=== PATIENT | male | born 1965 | race Caucasian/White ===

== ENCOUNTER 2021-12-10 12:43 | Emergency (ER) | payer OTHER, SELFPAY ==
[2021-12-10 13:33] VITALS: BP 143/79; PULSE 89; RESP 18; TEMP 36.6; O2SAT 98; BMI 29.2
--- NOTE | 2021-12-10 13:53 | HMH.EDUTC ---
[facility] Disposition Clinical Impression: Edema of face, Periorbital swelling Disposition: Home, Self-Care Condition on Discharge: Good Instructions: DI for General Allergic Reactions, Methylprednisolone Injection Additional Instructions: Drink plenty of fluids. Take tylenol or ibuprofen for pain or fever. Take the medications as directed. Follow up with your regular doctor. GO TO THE ER FOR ANY WORSENING SYMPTOMS Don't start the oral steroids until tomorrow, since you had the shot here today. Try to take the diphenhydramine (benedryl) regularly for the next couple of days. It will make you drowsy, so don't drive or operate machinery after taking it. Prescriptions: diphenhydrAMINE HCL [Diphenhydramine HCl] 25 mg PO Q6HP PRN #30 cap PRN Reason: Itching Transmission [id number] methylPREDNISolone [Medrol] 4 mg PO DIRECTED 6 Days #21 packet Transmission Status: Re[facility] by [id number] Referrals: Provider,Referral, MD [Primary Care Provider] - Forms: Work/School Release Time of Disposition: 14:44 Medical Decision Making - Medical Records Medical records reviewed: No: I reviewed the patient's medical records. - Tommy Inquiry Pt receiving controlled substance: No Vital Signs: 12/10/21 13:33 12/10/21 14:49 Temperature 97.9 F 97.9 F Temperature Source Oral Oral Pulse Rate 89 Pulse Rate [Right Brachial] 89 Respiratory Rate 18 18 Blood Pressure 143/79 H Blood Pressure [Right Arm] 143/79 H Blood Pressure Mean [Right Arm] 100 Blood Pressure Source Automatic Cuff Blood Pressure Source [Right Arm] Automatic Cuff Blood Pressure Position [Right Arm] Sitting 02 Sat by Pulse Oximetry 98 Oxygen Delivery Method Room Air Room Air Orders (Tests/Meds): ED MEDICATIONS Discontinued Medications Generic Name Dose Route Start Last Admin Trade Name Freq PRN Reason Stop Dose Admin Methylprednisolone Sodium Succinate 125 mg 12/10/21 14:07 12/10/21 14:15 Methylprednisolone Sod Succ 125mg Vial IM 12/10/21 14:08 125 mg ONCE ONE Administration [facility] HPI - General Stated complaint: bilateral eye pain/swelling Time Seen by Provider: 12/10/21 13:53 Mode of Arrival: Ambulatory Source of Information: Patient, Relative Limitations: Language Barrier Description of Symptoms (Recalled from Triage Doc. by RN): eye swelling/pain HEENT Symptoms (Recalled from RN notes): Yes Resp Symptoms (Recalled from RN notes): No Skin Symptoms (Recalled from RN notes): No MS Symptoms (Recalled from RN notes): No Functional Status (Recalled from RN notes): n/a - History of Present Illness Provider Complaint: He states that for the past 2 days he has had worsening swelling around his eyes. He denies any vision changes, other than what the swelling causes. He denies any injury or foreign body. 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 He denies any fever, but he did have some chilling a couple of days ago. But, he states that that got better. - Related Data Previous Rx's Medication Instructions Recorded diphenhydrAMINE HCL 25 mg PO Q6HP PRN #30 cap 12/10/21 [Diphenhydramine HCl] methylPREDNISolone [Medrol] 4 mg PO DIRECTED 6 Days #21 12/10/21 packet Allergies Allergy/AdvReac Type Severity Reaction Status Date / Time No Known Allergies Allergy Verified 12/10/21 14:15 - Worker's Comp Is this a Worker's Comp case?: No Is this an [facility] Worker's Comp?: No Is this a [facility] Worker's Comp?: No H History - Hepatitis A Screen Drug use history?: No High risk sexual behaviors?: No History of sexually transmitted infection?: No Currently employed?: No Childcare worker?: No Do you have indoor plumbing?: Yes Do you have electricity?: Yes Attestation statement:: This patient has been screened for Hepatitis A risk factors. I have reviewed the patient's past medical history: Yes ROS Obtained: Yes All systems reviewed & no additional complaints - Constitu
[2021-12-10 14:49] VITALS: BP 143/79; PULSE 89; RESP 18; TEMP 36.6; O2SAT 98
== END 2021-12-10 14:49 | disposition home or self-care (01) ==
PROVIDERS: Emergency Provider Nurse Practitioner Family
DX: H05.223 Edema of bilateral orbit (principal)
CPT/HCPCS: 96372; 99202; G0463

== ENCOUNTER 2021-12-17 18:23 | Inpatient (IN) | payer OTHER, SELFPAY ==
[2021-12-17 18:24] VITALS: BP 112/73; PULSE 127; RESP 16; TEMP 36.8; O2SAT 100; BMI 28.1
--- NOTE | 2021-12-17 18:46 | CT_ITS ---
PROCEDURE INFORMATION: Exam: CT Abdomen And Pelvis With Contrast Exam date and time: 12/17/2021 6:46 PM Age: 56 years old Clinical indication: Other: Bloody stool; Additional info: Melena- bloody stool concern for gi bleed TECHNIQUE: Imaging protocol: Computed tomography of the abdomen and pelvis with contrast. Radiation optimization: All CT scans at this facility use at least one of these dose optimization techniques: automated exposure control; mA and/or kV adjustment per patient size (includes targeted exams where dose is matched to clinical indication); or iterative reconstruction. Contrast material: ISOVUE; Contrast volume: 75 ml; Contrast route: IV; COMPARISON: No relevant prior studies available. FINDINGS: Liver: Shrunken nodular contour of the liver. Gallbladder and bile ducts: No calcified stones. No ductal dilation. Pancreas: Normal enhancement. No ductal dilation. Spleen: Spleen is enlarged measuring 20.8 cm in cc dimension. Adrenal glands: No mass. Kidneys and ureters: No hydronephrosis. Stomach and bowel: Wall thickening of the ascending and transverse colon. Appendix: No evidence of appendicitis. Intraperitoneal space: No free air. No significant fluid collection. Vasculature: Gastric and perisplenic varices. Splenorenal shunt is present. Lymph nodes: No enlarged lymph nodes. Urinary bladder: No acute abnormality. Reproductive: No acute abnormality. Bones/joints: No acute fracture. Soft tissues: Bilateral gynecomastia. IMPRESSION: Findings of cirrhosis with portal hypertension. There is colonic wall thickening which can also be seen in setting of portal hypertension however colitis or malignancy should be clinically excluded.
[2021-12-17 18:50] VITALS: BMI 28.1
--- NOTE | 2021-12-17 18:50 | ECG_ITS ---
APPROVED REPORT Exam: Resting ECG HR:125 bpm ECG Measurements Heart Rate 125 AXES ME 144 P 4 QRSd 91 QRS 41 QT 301 T 39 QTc 375 Conclusion SINUS TACHYCARDIA ABNORMAL RHYTHM ECG UNCONFIRMED REPORT Electronically signed by : Juan Lynne MD 12/21/2021 16:11:25
--- NOTE | 2021-12-17 18:58 | HMH.EDGENADL ---
ED Disposition Clinical Impression: GI bleed Disposition: Admitted As Inpatient Condition on Discharge: Serious Time of Disposition: 18:45 - Critical Care Critical Care Time: Yes Attestation: On 12/17/21, the high probability of a clinically significant, sudden or life threatening deterioration of the following system(s) required my full and direct attention, intervention and personal management. The time I documented below is in addition to time spent performing reported procedures but includes the following listed in this critical care notation. Total Critical Care Time: 30 Vital system(s) involved:: Central Nervous System, Shock (Hemorrhage) My critical care processes included: Assessment & monitoring of V/S, Initial and Re-exams, Data Review/Interpretation, Coordinating Care, Medication Orders and management Medical Decision Making - Medical Records Medical records reviewed: Yes: I reviewed the patient's medical records. - Tommy Inquiry Pt receiving controlled substance: No Vital Signs: 12/17/21 18:24 12/17/21 19:08 Temperature 98.3 F Temperature Source Oral Pulse Rate 120 H Pulse Rate [Right] 127 H Respiratory Rate 16 16 Blood Pressure 104/59 L Blood Pressure [Right Arm] 112/73 Blood Pressure Mean [Right Arm] 86 Blood Pressure Source Automatic Cuff Blood Pressure Source [Right Arm] Automatic Cuff Blood Pressure Position Sitting Blood Pressure Position [Right Arm] Sitting 02 Sat by Pulse Oximetry 100 98 Oxygen Delivery Method Room Air Room Air - Lab Data Lab results reviewed: Yes: I reviewed the patient's lab results. Lab Results 12/17/21 18:45: WBC 19.5 H, RBC 2.66 L, Hgb 8.6 L, Hct 25.3 L, MCV 95.2 H, MCH 32.4 H, MCHC 34.0, RDW 15.3, Plt Count 73 L, MPV 9.5, Neut % (Auto) 87.8 H, Lymph % (Auto) 7.1 L, [place] % (Auto) 4.9, Eos % (Auto) 0.1, Baso % (Auto) 0.2, Neut # (Auto) 17.1 H, Lymph # (Auto) 1.4, [place] # (Auto) 1.0, Eos # (Auto) 0.0, Baso # (Auto) 0.0 12/17/21 18:45: PT 19.5 H, INR 1.80 H, APTT 50.4 H 12/17/21 18:45: Sodium 129 L, Potassium 4.9, Chloride 101, Carbon Dioxide 19 L, Anion Gap 13.9, BUN 57 H, Creatinine 1.20, Estimated Creat Clear 78, Estimated GFR 62, Est GFR ( Amer) 76, Glucose 137 H, Calcium 7.9 L, Total Bilirubin 3.1 H, AST 163 H, ALT 103 H, Alkaline Phosphatase 77, Total Protein 5.5 L, Albumin 2.4 L, Globulin 3.1, Albumin/Globulin Ratio 0.8 L 12/17/21 18:45: Ammonia 11 12/17/21 18:45: Blood Type O Positive, Antibody Screen Negative 12/17/21 19:06: Lactate 5.5 H Result diagrams: 12/17/21 18:45 12/17/21 18:45 Orders (Tests/Meds): ED MEDICATIONS Generic Name Dose Route Start Last Admin Trade Name Freq PRN Reason Stop Dose Admin Octreotide Acetate 500 mcg/ 255 mls @ 25.5 mls/hr 12/17/21 19:00 12/17/21 19:27 Sodium Chloride IV 01/16/22 18:59 25.5 mls/hr .Q10H NICOLE Administration 50 MCG/HR Ceftriaxone Sodium 1 gm/ 50 mls @ 100 mls/hr 12/17/21 19:00 12/17/21 19:14 Sodium Chloride IV 12/31/21 18:59 100 mls/hr Q24H NICOLE Administration Sodium Chloride 1,000 mls @ 999 mls/hr 12/17/21 19:00 12/17/21 19:13 Sod Chlor 0.9% 1000ml Bag IV 12/17/21 20:00 999 mls/hr .Q1H1M NICOLE Administration Phytonadione 5 mg/ Sodium 50.5 mls @ 100 mls/hr 12/17/21 20:13 Chloride IV 12/17/21 20:43 ONCE ONE Pantoprazole Sodium 40 mg 12/17/21 21:00 Pantoprazole 40mg Vial IV 01/16/22 20:59 BID NICOLE Sodium Chloride 10 ml 12/17/21 20:14 Sodium Chloride 0.9% 10ml Vial IV 01/16/22 20:13 NEEDED PRN dilute protonix Discontinued Medications Generic Name Dose Route Start Last Admin Trade Name Freq PRN Reason Stop Dose Admin Pantoprazole Sodium 80 mg/ 100 mls @ 100 mls/hr 12/17/21 18:47 12/17/21 19:13 Sodium Chloride IV 12/17/21 19:46 100 mls/hr ONCE ONE Administration Pantoprazole Sodium 80 mg/ 100 mls @ 10 mls/hr 12/17/21 20:00 12/17/21 20:13 Sodium Chloride IV 12/20/21 19:59 Not Given .Q1
--- NOTE | 2021-12-17 19:03 | CT_ITS ---
PROCEDURE INFORMATION: Exam: CT Head Without Contrast Exam date and time: 12/17/2021 7:03 PM Age: 56 years old Clinical indication: Altered mental status/memory loss; Confusion or disorientation; Additional info: Ams/ not able to follow commands- patient moved on first scan so we repeated TECHNIQUE: Imaging protocol: Computed tomography of the head without contrast. Radiation optimization: All CT scans at this facility use at least one of these dose optimization techniques: automated exposure control; mA and/or kV adjustment per patient size (includes targeted exams where dose is matched to clinical indication); or iterative reconstruction. COMPARISON: No relevant prior studies available. FINDINGS: Brain: White matter changes compatible with small vessel occlusive change. No mass. No hemorrhage. Cerebral ventricles: No ventriculomegaly. Paranasal sinuses: Mucosal thickening of the paranasal sinuses. No air fluid level. Mastoid air cells: Visualized mastoid air cells are well aerated. Bones/joints: No acute fracture. Soft tissues: No significant soft tissue abnormality. IMPRESSION: No acute findings.
[2021-12-17 19:08] VITALS: BP 104/59; PULSE 120; RESP 16; O2SAT 98
[2021-12-17 19:09] LABS: Alanine Aminotransferase 103 U/L (12-78); Albumin Level 2.4 g/dl (3.5-5.0); Albumin/Globulin Ratio 0.8 (1.1-1.8); Alkaline Phosphatase 77 U/L (38-126); Anion Gap 13.9 mEq/L (5-15); Aspartate Amino Transferase 163 U/L (17-59); Bilirubin,Total 3.1 mg/dl (0.2-1.3); Blood Urea Nitrogen 57 mg/dl (9-20); Calcium 7.9 mg/dl (8.4-10.2); Carbon Dioxide 19 mmol/L (22.0-30.0); Chloride 101 mmol/L (98-107); Creatinine Clearance Estimated 78 mL/min (50-200); Estimated Glomerular Filt Rate 62 ml/min (>60); GFR (African American) 76 ML/MIN (>60); Globulin 3.1 g/dL (1.3-3.2); Glucose 137 mg/dl (74-100); Potassium 4.9 mmoL/L (3.5-5.1); Sodium 129 mmol/L (136-145); Total Protein,Serum 5.5 g/dl (6.3-8.2)
--- NOTE | 2021-12-17 19:09 | PC.NURSE ---
PT placed in room 11, went in to assess patient and he was pale in color and tachycardia. Pt had dried feces down both lower legs that appeared to have a blood tinge to it. PT moved to room 1 and placed on monitor. at bedside. Son was at bedside and was advising us what was going on while the ipad was being obtained. PT was placed in gown and lower legs were washed at this time.
[2021-12-17 19:16] LABS: Activated Partial Thrombo Time 50.4 seconds (22.8-30.6); Prothrombin Time 19.5 seconds (10.1-12.5)
[2021-12-17 19:19] LABS: Ammonia 11 umol/L (9-30)
--- NOTE | 2021-12-17 19:21 | PC.NURSE ---
patient in CT
[2021-12-17 19:25] LABS: Basophils % 0.2 % (0.1-2.0); Eosinophils % 0.1 % (0.1-12.0); Hematocrit 25.3 % (42.0-52.0); Hemoglobin 8.6 g/dL (14.1-18.0); Lymphocytes # 1.4 K/mm3 (0.7-4.5); Lymphocytes % 7.1 % (10-50); Mean Corpuscular Hemoglobin 32.4 pg (27.0-31.2); Mean Corpuscular Volume 95.2 fl (80-94); Mean Platelet Volume 9.5 fl (7.4-10.4); Monocytes % 4.9 % (1.7-9.3); Neutrophils # 17.1 K/mm3 (1.8-7.8); Neutrophils % 87.8 % (37.0-80.0); Platelet Count 73 K/mm3 (142-424); Red Blood Count 2.66 M/mm3 (4.60-6.20); Red Cell Distribution Width 15.3 % (11.5-17.5); White Blood Count 19.5 K/mm3 (4.8-10.8)
[2021-12-17 19:29] LABS: MANUAL DIFFERENTIAL MANUAL DIFFERENTIAL (MANUAL DIFF)
[2021-12-17 19:29] LABS: Lactic Acid 5.5 mmol/L (0.7-2.1)
--- NOTE | 2021-12-17 19:29 | PC.NURSE ---
Critical lactic 5.5 called to SHERIN Jones
--- NOTE | 2021-12-17 19:41 | PC.NURSE ---
ED doctor on phone with Dr. Maxwell
--- NOTE | 2021-12-17 19:45 | PC.NURSE ---
Dr. Gordo jones for ED MD
[2021-12-17 20:00] VITALS: BP 93/60; PULSE 108; O2SAT 100
--- NOTE | 2021-12-17 20:15 | PC.NURSE ---
JOLEEN KESSLER spoke with Dr. Monterroso
--- NOTE | 2021-12-17 20:15 | PC.NURSE ---
JOLEEN KESSLER spoke to Dr. Caro
[2021-12-17 20:44] LABS: Coronavirus 19, PCR Not Detected (NotDetected); Influenza A, PCR Not Detected (NotDetected); Influenza B, PCR Not Detected (NotDetected)
[2021-12-17 21:00] VITALS: BP 106/52; PULSE 110; O2SAT 100
[2021-12-17 21:36] VITALS: BP 112/63; PULSE 106; RESP 18; TEMP 36.7; O2SAT 98
--- NOTE | 2021-12-17 21:44 | PC.NURSE ---
patient up to floor @ this time
[2021-12-17 22:00] VITALS: BP 112/63; PULSE 111; RESP 20; TEMP 36.6; O2SAT 98; BMI 28.2
[2021-12-17 22:34] LABS: Lymphocytes % 8 % (10-50); Monocytes % 1 % (2-9); Neutrophils % 91 % (42-76); Total Cells Counted 100
[2021-12-17 22:35] LABS: Macrocytosis 1+; Platelet Estimate Normal
[2021-12-17 22:40] LABS: Reflex Lactic Add Lactic Reflex
[2021-12-17 23:11] LABS: Lactic Acid Follow Up (RFLX 1) 3.5 mmol/L (0.7-2.1)
[2021-12-18] VITALS (23 sets, daily range): BP systolic 93–129; BP diastolic 47–74; PULSE 81–103; RESP 18–20; TEMP 36.5–37.5; O2SAT 91–100
[2021-12-18 01:00] LABS: Reflex Lactic (2 hrs) Add Lactic Reflex
[2021-12-18 01:39] LABS: Lactic Acid Follow up (RFLX 2) 2.7 mmol/L (0.7-2.1)
--- NOTE | 2021-12-18 05:48 | PC.NURSE ---
Paged [facility] to verify Octreotide drip settings and dosage, since medication would not scan in DEC. Also verified with Clint DUFF, and Daniel Mroeno RN.
--- NOTE | 2021-12-18 06:46 | HMH.GSCON ---
*Admission Date: 12/17/21 *Reason for consult:: Likely upper gastrointestinal hemorrhage *History of present illness: This is a 56-year-old gentleman seen in consultation with the service Dr. Maxwell after presenting to the emergency department with dark emesis and melena. Recent altered mental status also noted. Evaluation revealed decreased hemoglobin and the surgical service was consulted for possible endoscopic evaluation of upper gastrointestinal hemorrhage. Please see evaluation from emergency department forwarded below. Forwarded for emergency department evaluation: Medical Decision Narrative: Mr. Norton is a 56 yo male w/ unknown PMH who presents to the ED for dark emesis and melena. Patient is afebrile and hemodynamically stable on arrival, non toxic appearing. Physical exam patient has copious dark dry blood on BLE and in mouth ocncerning for GI bleed. Patient is alert to place and name but intermittently confused during interview. Moving all extremities. Abdomen is non peritonitic. Differentials to consider include: GI bleed, Malignancy, AVM, Coagulopathy. Basic labs, PT/PTT, lactic acid are obtained for further evaluation resutls are remarkable for lactic acid of 5.5, PT INR of 1.8 and Hg 8.6 microcytic anemia, ammonia normal. CT head shows no acute intracranial process. CT GI bleed protocol pending. Patient admitted to [facility] for further management. General Surgery Dr. Wing consulted prior to transfer. Dr. Wing recommends given a dose of VK given elevated INR, patient given 5mg IV VK. Patient transferred in stable condition. General Adult HPI - General Chief complaint: GI Bleed Stated complaint: VOMITING Time Seen by Provider: 12/17/21 18:30 Mode of Arrival: EMS Source of Information: Patient, Relative Limitations: Altered Mental Status - History of Present Illness HPI narrative: Mr. Norton is a 56 yo vietnamese speaking male w/ unknown PMH who presents to the ED for AMS, melena and coffee ground emesis for 4d. History provided by patients son at bedside. The patient has been more altered over the last 4d and confused. He has had multiple episodes of dark stools and black emesis concerning for GI bleed. Patient was recently seen in the ED for allergic reaction and treated with steroids but otherwise has not had any recent illness. Patient is not on any blood thinners per his son. Patient is alert to place but is intermittently confused during interview. Limited hx given the patients current mentation. Review of Systems - Constitutional Denies chills - *Cardiovascular Denies chest pain - *Respiratory Denies cough - *Gastrointestinal Reports vomiting blood, Reports black, tarry stools - *Neurologic Reports weakness [facility] History *Have you ever received a pneumonia vaccine?: No *Have you received a flu vaccine this season?: Yes - *Social History Smoking Status: Unknown if ever smoked Alcohol Intake: never *Occupational Status:: retired Housing: house Household Members: friend(s) *Travel in the last 8 weeks: None Family Hx:: Unable to obtain Meds Home Medications Medication Instructions Recorded Confirmed Type diphenhydrAMINE HCL 25 mg PO Q6HP PRN #30 cap 12/10/21 12/17/21 Rx [Diphenhydramine HCl] methylPREDNISolone [Medrol] 4 mg PO DIRECTED 12/17/21 12/17/21 History Allergies Allergy/AdvReac Type Severity Reaction Status Date / Time No Known Allergies Allergy Verified 12/10/21 14:15 Exam Vital signs and Labs for Last 24 Hours: Temp Pulse Resp BP Pulse Ox 98 F 100 H 20 103/52 L 100 12/17/21 22:00 12/18/21 04:00 12/17/21 22:00 12/18/21 04:00 12/18/21 04:00 Laboratory Results - last 24 hr 12/17/21 18:45: WBC 19.5 H, RBC 2.66 L, Hgb 8.6 L, Hct 25.3 L, MCV 95.2 H, MCH 32.4 H
--- NOTE | 2021-12-18 07:21 | HMH.PHAVTE ---
[facility] Pharm[facility] VTE Monitoring - Patient Demographics Admission date: 12/17/21 Report Date: 12/18/21 Time: 07:21 Allergies/Adverse Reactions: Patient Allergies No Known Allergies Allergy (Verified 12/10/21 14:15) Height: 1.7 m Weight: 81.647 kg Patient Problems: Current Active Problems GI bleed (Acute) - VTE Risk Labs: VTE Related Lab Results Hgb 8.6 g/dL (14.1-18.0) L 12/17/21 18:45 Hct 25.3 % (42.0-52.0) L 12/17/21 18:45 Plt Count 73 K/mm3 (142-424) L 12/17/21 18:45 PT 19.5 seconds (10.1-12.5) H 12/17/21 18:45 INR 1.80 (0.9-1.1) H 12/17/21 18:45 APTT 50.4 seconds (22.8-30.6) H 12/17/21 18:45 BUN 57 mg/dl (9-20) H 12/17/21 18:45 Creatinine 1.20 mg/dl (0.66-1.25) 12/17/21 18:45 Estimated Creat Clear 78 mL/min (50-200) 12/17/21 18:45 Was VTE Risk Assessment Performed: Yes VTE Score: 2 Clinical Trial Participant: No - Prophylaxis VTE Prophylaxis Ordered?: Yes Types of VTE Prophylaxis: TEDS Knee High
[2021-12-18 08:26] LABS: Chloride 106 mmol/L (98-107); Sodium 131 mmol/L (136-145)
[2021-12-18 08:27] LABS: Potassium 4.4 mmoL/L (3.5-5.1)
[2021-12-18 08:29] LABS: Alanine Aminotransferase 81 U/L (12-78); Alkaline Phosphatase 67 U/L (38-126); Aspartate Amino Transferase 116 U/L (17-59); Bilirubin,Total 2.5 mg/dl (0.2-1.3); Blood Urea Nitrogen 40 mg/dl (9-20); Creatinine Clearance Estimated 118 mL/min (50-200); Estimated Glomerular Filt Rate 100 ml/min (>60); GFR (African American) 121 ML/MIN (>60)
[2021-12-18 08:30] LABS: Albumin Level 2.1 g/dl (3.5-5.0); Albumin/Globulin Ratio 0.7 (1.1-1.8); Anion Gap 5.4 mEq/L (5-15); Carbon Dioxide 24 mmol/L (22.0-30.0); Globulin 2.9 g/dL (1.3-3.2); Glucose 121 mg/dl (74-100)
[2021-12-18 08:31] LABS: Basophils % 0.2 % (0.1-2.0); Eosinophils % 0.5 % (0.1-12.0); Hematocrit 22.2 % (42.0-52.0); Lactic Acid 2.3 mmol/L (0.7-2.1); Lymphocytes # 1.5 K/mm3 (0.7-4.5); Lymphocytes % 15.6 % (10-50); Mean Corpuscular HGB Conc 34.8 g/dL (31.8-35.4); Mean Corpuscular Hemoglobin 33.4 pg (27.0-31.2); Mean Corpuscular Volume 96.2 fl (80-94); Mean Platelet Volume 9.7 fl (7.4-10.4); Monocytes # 0.5 K/mm3 (0.1-1.0); Monocytes % 5.5 % (1.7-9.3); Neutrophils # 7.6 K/mm3 (1.8-7.8); Neutrophils % 78.3 % (37.0-80.0); Platelet Count 54 K/mm3 (142-424); Red Blood Count 2.31 M/mm3 (4.60-6.20); Red Cell Distribution Width 15.6 % (11.5-17.5); White Blood Count 9.7 K/mm3 (4.8-10.8)
[2021-12-18 09:10] LABS: Hemoglobin 7.7 g/dL (14.1-18.0)
--- NOTE | 2021-12-18 09:10 | HMH.HP ---
*Admission Date: 12/17/21 <Pili Rick - 12/18/21 09:11> *Chief complaint: GI bleed <Pili Rick - 12/18/21 09:11> *History of present illness: Mr Norton is a 56-year-old male who has not been doing well for the last 3 to 4 days. He does not speak [place] and his son is present for interpretation. Patient lives with his son's friend. Apparently yesterday the son tried to call him via phone and there was no answer. Thus he went to the home and found him on the floor. He had vomited blood and was incontinent of black stool. Thus he brought him to the emergency room for evaluation. He states his father has not been himself for the last 3 to 4 days with vague altered mental status. The son and patient do not know if he had had any previous vomiting or diarrhea or how he was eating. With evaluation in the emergency room he was given Octreotide, A liter of IV fluids, vitamin K, and started on Protonix. He was noted to be afebrile and hemodynamically stable. With physical exam he had copious amounts of dark, dry blood on his bilateral lower extremities and in his mouth. He was noted to be alert to place and name but intermittently confused durinn conversation. He moved all extremities. He was noted to take no medicines and no anticoagulants. Testing showed CT of the head with no intracranial process. CT of the pelvis/abdomen showed findings of cirrhosis with portal hypertension.; Colonic wall thickening To consider portal hypertension, Colitis, or malignancy. Laboratory data on admission show white blood cell count of 19,500 which normalized this morning at 9,700. Hemoglobin decreased from 8.6-7.7. Blood chemistries show hyponatremia with a sodium on admission at 129 and is now 131. Potassium is stable at 4.9 and 4.4. BUN was 57 with a creatinine of 1.2 and this morning is 49/0.8. Liver function studies are also elevated on admission with an AST of 163 and ALT of 103 and bilirubin of 3.1. Alkaline phosphatase is normal at 77 and ammonia is 11. Albumin is low at 2.4. Liver function studies have slightly improved this morning. Lactate has improved from 5.5-2.7. Patient was also seen at the urgent treatment center on 12/10/2021 with swelling around his eyes. He was treated for general allergic reaction and given IV Solu-Medrol and prescribed dexamethasone and Benadryl. This a.m. patient denies abdominal pain, nausea, and has had no further vomiting since admission. He has had no further stools. He remains n.p.o.. He has been seen by surgeon Dr. Brambila who plans an EGD later on today. <Pili Rick 12/18/21 09:51> [facility] History Medical History: Denies:: Chronic Obstructive Pulmonary Disease (COPD), Coronary Artery Disease, Cerebrovascular Accident, Diabetes Mellitus Type 2 <Pili Rick 12/18/21 09:51> *Have you ever received a pneumonia vaccine?: No <Pili Rick 12/18/21 09:11> *Have you received a flu vaccine this season?: Yes <Pili Rick 12/18/21 09:11> Other Surgeries: Yes: Other (He has had surgery on one of his legs after an accident in the remote past) <Pili Rick 12/18/21 09:51> - *Social History Smoking Status: Unknown if ever smoked <Pili Rick 12/18/21 09:11> Alcohol Intake: never <Pili Rick 12/18/21 09:11> *Occupational Status:: unemployed, retired <Pili Rick 12/18/21 09:51> Housing: house <Pili Rick 12/18/21 09:11> Household Members: friend(s) <Pili Rick 12/18/21 09:11> *Travel in the last 8 weeks: None <Pili Rick 12/18/21 09:11> Comment: Son states pt is vacationing here from [place]. <Pili Rick 12/18/21 09:51> Family Hx:: Unable to obtain <Pili Rick 12/18/21 09:11> Review of Systems - Review of Systems Review of systems as per son and as per sons interpretation from his father <Pili Rick 12/18/21 09:51> - Constitutional Reports chills <Pili Rick 12/18/21 09:51> - Eyes Denies change in vision <Pili Rick - 12/18/21 09
--- NOTE | 2021-12-18 10:27 | PC.NURSE ---
Pt to EGD at 1024. Spoke with Jani in RE to plt count and H&H. Consent for procedure given with use of development architect.
--- NOTE | 2021-12-18 11:18 | HMH.SCOPE ---
- Procedure: Date: 12/18/21 Patient Date of :: 1965 Procedure Performed:: Esophagogastroduodenoscopy with biopsy Indications:: Upper gastrointestinal hemorrhage Performing Provider:: Jimmy Brambila MD Referring Provider:: Dr. Maxwell Sedation:: Monitored anesthesia care Procedure:: After informed consent was obtained the patient was taken to the endoscopy suite. Sedation ensued after the patient was transferred to the left lateral decubitus position. Pulse, blood pressure, and oxygen saturation were monitored throughout the procedure. The endoscope was advanced beyond the duodenal bulb. Retroflexion within the gastric lumen was accomplished. The gastroscope was carefully removed and the patient was transferred to recovery in stable condition. Please see findings and specimens below for detail. Findings:: Multiple distal gastric body/antral ulcerations (total of 9 small to medium sized ulcers) All ulcerations with fibrinous exudate at the base No pulsatile vessel or blood clot noted at the base of ulcers No sign of active hemorrhage from ulcerations No blood noted within gastric lumen or small bowel Punctate gastritis throughout proximal stomach (no active hemorrhage) Specimens:: Biopsy of antral ulceration margin Recommendations:: Continue PPI Carafate added Consider Cytotec Complications:: No immediate Estimated blood obtained (mL): 1
--- NOTE | 2021-12-18 11:29 | P.PN_ITS ---
[facility] Anesthesia Checklist - Patient Identification Patient Identification: Arm Band - Structural Data Admitted From: Inpatient Planned Operative Procedure/s: EGD Consent for Planned Operative Procedure(s) Verified: Yes Verified Documents: Surgical Consent - Airway Assessment C-Spine Mobility Assessed: Yes TMJ Mobility Assessed: Yes Dentition: Good Dentition - Neurological Assessment Level of Consciousness: Awake, Alert - Anesthesia Plan Anesthesia Risk discussed: Yes Anesthesia Type: MAC [facility] History I have reviewed the patient's past medical history: Yes Medical History: Denies:: Chronic Obstructive Pulmonary Disease (COPD), Coronary Artery Disease, Cerebrovascular Accident, Diabetes Mellitus Type 2 *Have you ever received a pneumonia vaccine?: No *Have you received a flu vaccine this season?: Yes Anesthesia experience/problems:: none Other Surgeries: Yes: Other (He has had surgery on one of his legs after an accident in the remote past) - *Social History Smoking Status: Unknown if ever smoked Alcohol Intake: never Substance Use Type: denies use *Occupational Status:: unemployed, retired Housing: house Household Members: friend(s) *Travel in the last 8 weeks: None Family Hx:: Unable to obtain
[2021-12-18 12:19] LABS: Reflex Lactic Add Lactic Reflex
[2021-12-18 14:10] LABS: Lactic Acid Follow Up (RFLX 1) 3.8 mmol/L (0.7-2.1)
[2021-12-18 15:55] LABS: Reflex Lactic (2 hrs) Add Lactic Reflex
[2021-12-18 16:49] LABS: Lactic Acid Follow up (RFLX 2) 3.4 mmol/L (0.7-2.1)
[2021-12-18 16:54] LABS: Hematocrit 36.8 % (42.0-52.0); Hemoglobin 12.2 g/dL (14.1-18.0)
--- NOTE | 2021-12-18 17:40 | PC.NURSE ---
During blood transfusion blood slightly infiltrated into L arm, immediately stopped blood, elevated arm and applied warm compress. Switched blood into another IV and started another IV 20 gauge in the RAC area.
[2021-12-18 17:41] LABS: POC Glucose,Bedside 142 (70-110)
[2021-12-19] VITALS: BP 119/68; PULSE 94; RESP 16; TEMP 36.7; O2SAT 99
[2021-12-19 04:00] VITALS: BP 122/58; PULSE 87; RESP 16; TEMP 36.8; O2SAT 99
[2021-12-19 08:00] VITALS: BP 129/62; PULSE 86; RESP 16; TEMP 36.7
--- NOTE | 2021-12-19 08:11 | HMH.ACPN2 ---
<Sadia Jimenez - Last Filed: 12/19/21 08:11> Internal Medicine - PN: Subj *Date: 12/19/21 *Time: 08:11 Interval history: Patient still complains of some lower chest pain and pain in the epigastric area. He also has some pain in the right upper quadrant and left upper quadrant. Exam Vital signs and Labs for Last 24 Hours: Temp Pulse Resp BP Pulse Ox 98.2 F 87 16 122/58 L 99 12/19/21 04:00 12/19/21 04:00 12/19/21 04:00 12/19/21 04:00 12/19/21 04:00 Laboratory Results - last 24 hr 12/17/21 18:45: Blood Type O Positive, Antibody Screen Negative, Crossmatch (AHG) See Detail 12/18/21 08:02: WBC 9.7 D, RBC 2.31 L, Hgb 7.7 L D, Hct 22.2 L, MCV 96.2 H, MCH 33.4 H, MCHC 34.8, RDW 15.6, Plt Count 54 L D, MPV 9.7, Neut % (Auto) 78.3, Lymph % (Auto) 15.6, Prentiss % (Auto) 5.5, Eos % (Auto) 0.5, Baso % (Auto) 0.2, Neut # (Auto) 7.6, Lymph # (Auto) 1.5, Prentiss # (Auto) 0.5, Eos # (Auto) 0.0, Baso # (Auto) 0.0 12/18/21 08:02: Sodium 131 L, Potassium 4.4, Chloride 106, Carbon Dioxide 24, Anion Gap 5.4, BUN 40 H D, Creatinine 0.80 D, Estimated Creat Clear 118, Estimated GFR 100, Est GFR ( Amer) 121 D, Glucose 121 H, Calcium 7.0 L, Total Bilirubin 2.5 H, AST 116 H D, ALT 81 H, Alkaline Phosphatase 67, Total Protein 5.0 L, Albumin 2.1 L D, Globulin 2.9, Albumin/Globulin Ratio 0.7 L 12/18/21 08:02: Lactate 2.3 H 12/18/21 08:02: Blood Type Confirm O Positive 12/18/21 13:50: Lactate 3.8 H 12/18/21 16:22: Lactate 3.4 H 12/18/21 16:22: Hgb 12.2 L D, Hct 36.8 L 12/18/21 17:33: POC Glucose 142 H I & O for Last 24 hours: Intake & Output 12/16/21 12/17/21 12/18/21 12/19/21 11:59 11:59 11:59 11:59 Intake Total 1080 / 1080 Output Total 0 / 0 Balance 0 / 0 1080 / 1080 Weight 180 lb - Constitutional no acute distress - *Routine Respiratory Exam Present: CTA bilaterally - *Routine Cardiovascular Exam Present: RRR - *Routine Abdominal Exam Present: soft, normoactive bowel sounds, tenderness (Entire upper abdomen) - *Routine Extremities Exam Present: edema (trace bilateral LE). Absent: cyanosis, clubbing - *Routine Skin Exam Present: warm. Absent: rash - *Routine Neurological Exam Present: alert, oriented X3 Assessment and Plan (1) GI bleed Status: Acute Category: Medical Code(s): K92.2 - Gastrointestinal hemorrhage, unspecified (2) Anemia Status: Acute Qualifiers: Anemia type: other cause Category: Medical Code(s): D64.9 - Anemia, unspecified (3) Thrombocytopenia Status: Acute Category: Medical Code(s): D69.6 - Thrombocytopenia, unspecified (4) Elevated LFTs Status: Acute Category: Medical Code(s): R79.89 - Other specified abnormal findings of blood chemistry (5) Gastric ulcer Status: Acute Category: Medical Code(s): K25.9 - Gastric ulcer, unspecified as acute or chronic, without hemorrhage or perforation - Assessment and plan all Dx Assessment and Plan for all problems:: Patient was seen by Dr. Brambila yesterday and had an EGD with biopsy. He found the following: Multiple distal gastric body/antral ulcerations (total of 9 small to medium sized ulcers) All ulcerations with fibrinous exudate at the base No pulsatile vessel or blood clot noted at the base of ulcers No sign of active hemorrhage from ulcerations No blood noted within gastric lumen or small bowel Punctate gastritis throughout proximal stomach (no active hemorrhage) He recommended continued PPI and Carafate. He also recommended the possibility of adding Cytotec <Robbin Maxwell - Last Filed: 12/19/21 08:18> Internal Medicine - PN: Subj *Date: 12/19/21 *Time: 08:17 Exam Vital signs and Labs for Last 24 Hours: Temp Pulse Resp BP Pulse Ox 98.1 F 86 16 129/62 99 12/19/21 08:00 12/19/21 08:00 12/19/21 08:00 12/19/21 08:00 12/19/21 04:00 Laboratory Results - last 24 hr 12/17/21 18:45: Blood Type O Positive, Antibody Screen Negative, Crossmatch (AHG) See Detail
[2021-12-19 11:37] VITALS: BP 114/63; PULSE 92; RESP 16; TEMP 36.7; O2SAT 100
[2021-12-19 12:29] LABS: POC Glucose,Bedside 125 (70-110)
[2021-12-19 15:43] VITALS: BP 147/72; PULSE 86; RESP 18; TEMP 36.8; O2SAT 96
--- NOTE | 2021-12-19 16:52 | PC.NURSE ---
No acute changes this shift. VSS. Son at bedside. CB in reach. Mx continues.
[2021-12-19 17:07] LABS: POC Glucose,Bedside 120 (70-110)
[2021-12-19 20:00] VITALS: BP 120/59; PULSE 76; RESP 18; TEMP 36.7; O2SAT 100
--- NOTE | 2021-12-19 23:04 | PC.NURSE ---
2299 Patient complaint of nausea with dry heaving. No nausea medication on DEC. Contacted boom conveyor operator who ordered Phenergan 12.5 mg IV q4 hours prn.
[2021-12-20 04:00] VITALS: BP 127/69; PULSE 92; RESP 19; TEMP 37.4; O2SAT 96
[2021-12-20 05:00] VITALS: BMI 29.2
[2021-12-20 06:15] LABS: Basophils # 0.1 K/mm3 (0-0.2); Basophils % 1.4 % (0.1-2.0); Eosinophils # 0.1 K/mm3 (0.0-0.4); Eosinophils % 1.1 % (0.1-12.0); Hematocrit 24.3 % (42.0-52.0); Hemoglobin 8.1 g/dL (14.1-18.0); Lymphocytes # 0.7 K/mm3 (0.7-4.5); Lymphocytes % 9.9 % (10-50); Mean Corpuscular HGB Conc 33.3 g/dL (31.8-35.4); Mean Corpuscular Hemoglobin 33.3 pg (27.0-31.2); Mean Platelet Volume 8.8 fl (7.4-10.4); Monocytes # 0.3 K/mm3 (0.1-1.0); Monocytes % 3.7 % (1.7-9.3); Neutrophils % 83.9 % (37.0-80.0); Platelet Count 57 K/mm3 (142-424); Red Blood Count 2.43 M/mm3 (4.60-6.20); Red Cell Distribution Width 16.6 % (11.5-17.5); White Blood Count 7.2 K/mm3 (4.8-10.8)
[2021-12-20 06:57] LABS: Alanine Aminotransferase 89 U/L (12-78); Albumin/Globulin Ratio 0.6 (1.1-1.8); Alkaline Phosphatase 70 U/L (38-126); Aspartate Amino Transferase 133 U/L (17-59); Bilirubin,Total 2.3 mg/dl (0.2-1.3); Blood Urea Nitrogen 15 mg/dl (9-20); Calcium 6.9 mg/dl (8.4-10.2); Carbon Dioxide 24 mmol/L (22.0-30.0); Chloride 105 mmol/L (98-107); Creatinine Clearance Estimated 163 mL/min (50-200); Estimated Glomerular Filt Rate 139 ml/min (>60); GFR (African American) 168 ML/MIN (>60); Globulin 3.1 g/dL (1.3-3.2); Glucose 125 mg/dl (74-100); Sodium 131 mmol/L (136-145); Total Protein,Serum 5.1 g/dl (6.3-8.2)
[2021-12-20 08:00] VITALS: BP 120/62; PULSE 85; RESP 16; TEMP 37.2; O2SAT 98
--- NOTE | 2021-12-20 08:15 | HMH.ACPN2 ---
<Sadia Jimenez - Last Filed: 12/20/21 08:15> Internal Medicine - PN: Subj *Date: 12/20/21 *Time: 08:15 Interval history: Patient's abdominal pain has improved. He states he only has a small amount of pain in the epigastric area. He does not feel like eating. Exam Vital signs and Labs for Last 24 Hours: Temp Pulse Resp BP Pulse Ox 98.9 F 85 16 120/62 98 12/20/21 08:00 12/20/21 08:00 12/20/21 08:00 12/20/21 08:00 12/20/21 08:00 Laboratory Results - last 24 hr 12/19/21 12:20: POC Glucose 125 H 12/19/21 16:20: POC Glucose 120 H 12/20/21 05:40: WBC 7.2 D, RBC 2.43 L, Hgb 8.1 L, Hct 24.3 L, MCV 100.0 H, MCH 33.3 H, MCHC 33.3, RDW 16.6, Plt Count 57 L, MPV 8.8, Neut % (Auto) 83.9 H, Lymph % (Auto) 9.9 L, Tompkins % (Auto) 3.7, Eos % (Auto) 1.1, Baso % (Auto) 1.4, Neut # (Auto) 6.0, Lymph # (Auto) 0.7, Tompkins # (Auto) 0.3, Eos # (Auto) 0.1, Baso # (Auto) 0.1 12/20/21 05:40: Sodium 131 L, Potassium 4.0, Chloride 105, Carbon Dioxide 24, Anion Gap 6.0, BUN 15 D, Creatinine 0.60 L D, Estimated Creat Clear 163, Estimated GFR 139, Est GFR ( Amer) 168 D, Glucose 125 H, Calcium 6.9 L, Total Bilirubin 2.3 H, AST 133 H, ALT 89 H, Alkaline Phosphatase 70, Total Protein 5.1 L, Albumin 2.0 L, Globulin 3.1, Albumin/Globulin Ratio 0.6 L I & O for Last 24 hours: Intake & Output 12/17/21 12/18/21 12/19/21 12/20/21 11:59 11:59 11:59 11:59 Intake Total 1440 / 1440 920 / 920 Output Total 0 / 0 600 / 600 Balance 0 / 0 1440 / 1440 320 / 320 Weight 180 lb 186 lb 9.6 oz - Constitutional no acute distress - *Routine Respiratory Exam Present: CTA bilaterally - *Routine Cardiovascular Exam Present: RRR - *Routine Abdominal Exam Present: soft, normoactive bowel sounds, tenderness (Epigastric area) - *Routine Extremities Exam Absent: cyanosis, clubbing, edema - *Routine Skin Exam Present: warm. Absent: rash - *Routine Neurological Exam Present: alert, oriented X3 Assessment and Plan (1) GI bleed Status: Acute Category: Medical Code(s): K92.2 - Gastrointestinal hemorrhage, unspecified (2) Anemia Status: Acute Qualifiers: Anemia type: other cause Category: Medical Code(s): D64.9 - Anemia, unspecified (3) Thrombocytopenia Status: Acute Category: Medical Code(s): D69.6 - Thrombocytopenia, unspecified (4) Elevated LFTs Status: Acute Category: Medical Code(s): R79.89 - Other specified abnormal findings of blood chemistry (5) Gastric ulcer Status: Acute Category: Medical Code(s): K25.9 - Gastric ulcer, unspecified as acute or chronic, without hemorrhage or perforation - Assessment and plan all Dx Assessment and Plan for all problems:: H&H is decreased from 12.2 and 36.8-8.1 and 24.3. Calcium is low at 6.9 and liver tests are still elevated. May need more blood, will discuss with Dr. Maxwell. <Robbin Maxwell - Last Filed: 12/20/21 08:57> Internal Medicine - PN: Subj *Date: 12/20/21 *Time: 08:55 Exam Vital signs and Labs for Last 24 Hours: Temp Pulse Resp BP Pulse Ox 98.9 F 85 16 120/62 98 12/20/21 08:00 12/20/21 08:00 12/20/21 08:00 12/20/21 08:00 12/20/21 08:00 Laboratory Results - last 24 hr 12/19/21 12:20: POC Glucose 125 H 12/19/21 16:20: POC Glucose 120 H 12/20/21 05:40: WBC 7.2 D, RBC 2.43 L, Hgb 8.1 L, Hct 24.3 L, MCV 100.0 H, MCH 33.3 H, MCHC 33.3, RDW 16.6, Plt Count 57 L, MPV 8.8, Neut % (Auto) 83.9 H, Lymph % (Auto) 9.9 L, Tompkins % (Auto) 3.7, Eos % (Auto) 1.1, Baso % (Auto) 1.4, Neut # (Auto) 6.0, Lymph # (Auto) 0.7, Tompkins # (Auto) 0.3, Eos # (Auto) 0.1, Baso # (Auto) 0.1 12/20/21 05:40: Sodium 131 L, Potassium 4.0, Chloride 105, Carbon Dioxide 24, Anion Gap 6.0, BUN 15 D, Creatinine 0.60 L D, Estimated Creat Clear 163, Estimated GFR 139, Est GFR ( Amer) 168 D, Glucose 125 H, Calcium 6.9 L, Total Bilirubin 2.3 H, AST 133 H, ALT 89 H, Alkaline Phosphatase 70, Total Protein 5.1 L, Albumin 2.0 L, Globulin 3.1, A
--- NOTE | 2021-12-20 08:53 | HMH.GSPN ---
Subjective Patient reports: no new complaints Progress Note: A&P (1) GI bleed Status: Acute (2) Anemia Status: Acute Assessment and plan: Most likely secondary to recent blood loss from gastric ulcers; however, an additional source remains a possibility. Initial laboratory response to transfusion much greater than anticipated. Current drop may reflect a combination of equilibration and possible persistent/recurrent bleeding. Continue current medical therapy NPO after midnight for possible repeat EGD (3) Thrombocytopenia Status: Acute (4) Elevated LFTs Status: Acute (5) Gastric ulcer Status: Acute Assessment and plan: Continue proton pump inhibition and Carafate Exam Vital signs and Labs for Last 24 Hours: Temp Pulse Resp BP Pulse Ox 98.9 F 85 16 120/62 98 12/20/21 08:00 12/20/21 08:00 12/20/21 08:00 12/20/21 08:00 12/20/21 08:00 Laboratory Results - last 24 hr 12/19/21 12:20: POC Glucose 125 H 12/19/21 16:20: POC Glucose 120 H 12/20/21 05:40: WBC 7.2 D, RBC 2.43 L, Hgb 8.1 L, Hct 24.3 L, MCV 100.0 H, MCH 33.3 H, MCHC 33.3, RDW 16.6, Plt Count 57 L, MPV 8.8, Neut % (Auto) 83.9 H, Lymph % (Auto) 9.9 L, Wilkinson % (Auto) 3.7, Eos % (Auto) 1.1, Baso % (Auto) 1.4, Neut # (Auto) 6.0, Lymph # (Auto) 0.7, Wilkinson # (Auto) 0.3, Eos # (Auto) 0.1, Baso # (Auto) 0.1 12/20/21 05:40: Sodium 131 L, Potassium 4.0, Chloride 105, Carbon Dioxide 24, Anion Gap 6.0, BUN 15 D, Creatinine 0.60 L D, Estimated Creat Clear 163, Estimated GFR 139, Est GFR ( Amer) 168 D, Glucose 125 H, Calcium 6.9 L, Total Bilirubin 2.3 H, AST 133 H, ALT 89 H, Alkaline Phosphatase 70, Total Protein 5.1 L, Albumin 2.0 L, Globulin 3.1, Albumin/Globulin Ratio 0.6 L I & O for Last 24 hours: Intake & Output 12/17/21 12/18/21 12/19/21 12/20/21 11:59 11:59 11:59 11:59 Intake Total 1440 / 1440 920 / 920 Output Total 0 / 0 600 / 600 Balance 0 / 0 1440 / 1440 320 / 320 Weight 180 lb 186 lb 9.6 oz - Constitutional no acute distress - *Routine Respiratory Exam Absent: respiratory distress - *Routine Cardiovascular Exam Absent: tachycardia
[2021-12-20 10:34] LABS: INR 1.26 (0.9-1.1)
[2021-12-20 16:00] VITALS: BP 128/74; PULSE 85; RESP 20; TEMP 36.7; O2SAT 99
[2021-12-20 20:00] VITALS: BP 128/73; PULSE 92; RESP 16; TEMP 36.9; O2SAT 99
--- NOTE | 2021-12-20 20:57 | PC.NURSE ---
2030 Updated Patient son at bedside.
[2021-12-21 04:00] VITALS: BP 120/69; PULSE 85; RESP 16; TEMP 37; O2SAT 96
[2021-12-21 04:41] VITALS: BMI 29.8
[2021-12-21 06:56] LABS: Hematocrit 24.8 % (42.0-52.0); Hemoglobin 8.2 g/dL (14.1-18.0)
[2021-12-21 07:26] VITALS: BP 112/56; PULSE 80; RESP 16; TEMP 37.2; O2SAT 97
[2021-12-21 08:00] VITALS: PULSE 80; O2SAT 97
--- NOTE | 2021-12-21 08:11 | HMH.ACPN2 ---
<Sadia Jimenez - Last Filed: 12/21/21 08:11> Internal Medicine - PN: Subj *Date: 12/21/21 *Time: 08:11 Interval history: Patient is feeling better this morning. He says his abdominal pain is improving. He has not had any vomiting. He is n.p.o. this morning for possible EGD and would like for Dr. Maxwell to speak with his family when he gets here over the phone. Exam Vital signs and Labs for Last 24 Hours: Temp Pulse Resp BP Pulse Ox 99.0 F 80 16 112/56 L 97 12/21/21 07:26 12/21/21 07:26 12/21/21 07:26 12/21/21 07:26 12/21/21 07:26 Laboratory Results - last 24 hr 12/20/21 09:59: PT 14.0 H, INR 1.26 H 12/21/21 05:40: Hgb 8.2 L, Hct 24.8 L I & O for Last 24 hours: Intake & Output 12/18/21 12/19/21 12/20/21 12/21/21 11:59 11:59 11:59 11:59 Intake Total 1440 / 1440 920 / 920 840 / 840 Output Total 0 / 0 600 / 600 Balance 0 / 0 1440 / 1440 320 / 320 840 / 840 Weight 180 lb 186 lb 9.6 oz 190 lb 1.6 oz - Constitutional no acute distress - *Routine Respiratory Exam Present: CTA bilaterally - *Routine Cardiovascular Exam Present: RRR - *Routine Abdominal Exam Present: soft, normoactive bowel sounds, tenderness (Mild in the epigastric area) - *Routine Extremities Exam Absent: cyanosis, clubbing, edema - *Routine Skin Exam Present: warm. Absent: rash - *Routine Neurological Exam Present: alert, oriented X3 Assessment and Plan (1) GI bleed Status: Acute Category: Medical Code(s): K92.2 - Gastrointestinal hemorrhage, unspecified (2) Anemia Status: Acute Qualifiers: Anemia type: other cause Category: Medical Code(s): D64.9 - Anemia, unspecified (3) Thrombocytopenia Status: Acute Category: Medical Code(s): D69.6 - Thrombocytopenia, unspecified (4) Elevated LFTs Status: Acute Category: Medical Code(s): R79.89 - Other specified abnormal findings of blood chemistry (5) Gastric ulcer Status: Acute Category: Medical Code(s): K25.9 - Gastric ulcer, unspecified as acute or chronic, without hemorrhage or perforation - Assessment and plan all Dx Assessment and Plan for all problems:: Possible repeat EGD today. Dr. Brambila to follow. H&H is stable. <HansRobbin - Last Filed: 12/21/21 08:57> Internal Medicine - PN: Subj *Date: 12/21/21 *Time: 08:56 Exam Vital signs and Labs for Last 24 Hours: Temp Pulse Resp BP Pulse Ox 99.0 F 80 16 112/56 L 97 12/21/21 07:26 12/21/21 07:26 12/21/21 07:26 12/21/21 07:26 12/21/21 07:26 Laboratory Results - last 24 hr 12/20/21 09:59: PT 14.0 H, INR 1.26 H 12/21/21 05:40: Hgb 8.2 L, Hct 24.8 L I & O for Last 24 hours: Intake & Output 12/18/21 12/19/21 12/20/21 12/21/21 23:59 23:59 23:59 23:59 Intake Total 1080 / 1080 1280 / 1280 840 / 840 0 / 0 Output Total 0 / 0 600 / 600 0 / 0 Balance 1080 / 1080 680 / 680 840 / 840 0 / 0 Weight 186 lb 9.6 oz 190 lb 1.6 oz Assessment and Plan (1) GI bleed Status: Acute Category: Medical Code(s): K92.2 - Gastrointestinal hemorrhage, unspecified (2) Anemia Status: Acute Qualifiers: Anemia type: other cause Category: Medical Code(s): D64.9 - Anemia, unspecified (3) Thrombocytopenia Status: Acute Category: Medical Code(s): D69.6 - Thrombocytopenia, unspecified (4) Elevated LFTs Status: Acute Category: Medical Code(s): R79.89 - Other specified abnormal findings of blood chemistry (5) Gastric ulcer Status: Acute Category: Medical Code(s): K25.9 - Gastric ulcer, unspecified as acute or chronic, without hemorrhage or perforation - Assessment and plan all Dx Assessment and Plan for all problems:: Saw patient, agree with above note. Spoke to pt's family via phone, all questions answered.
--- NOTE | 2021-12-21 10:25 | PC.NURSE ---
pt does not speak vietnamese, assessment completed using translation line.
--- NOTE | 2021-12-21 10:27 | PC.NURSE ---
pt states he has not had a bm since approx the evening of 12/19. states that he did have a small amount of bright blood with that bm, but has not had any further bm since then.
--- NOTE | 2021-12-21 12:10 | DIET.NUTRFU ---
Patient continues to be NPO for EGD today. Has only been on liquid diet since admit on 12/17. IVF were stopped on 12/19 and labs today: Na 131L, K 4.0, BUN 15, Cr 0.6L and glucose 125H, AST 133H and ALT 89H. If oral cannot be resumed today recommend IVF restarted to meet hydration needs
[2021-12-21 15:06] VITALS: BP 113/52; PULSE 82; RESP 18; TEMP 37.5; O2SAT 99
[2021-12-21 20:00] VITALS: BP 117/67; PULSE 100; RESP 16; TEMP 37.4; O2SAT 97
--- NOTE | 2021-12-22 03:12 | PC.NURSE ---
No acute changes this shift. Pt has denied discomfort. Has been up to bathroom this shift. No bloody stools observed by staff. VSS. Medications administered per dec. Will continue to monitor.
[2021-12-22 04:00] VITALS: BP 109/57; PULSE 93; RESP 16; TEMP 36.8; O2SAT 98
[2021-12-22 05:00] VITALS: BMI 29.7
[2021-12-22 07:39] VITALS: BP 112/65; PULSE 95; RESP 14; TEMP 36.7; O2SAT 98
--- NOTE | 2021-12-22 08:40 | P.PN_ITS ---
Internal Medicine - PN: Subj *Date: 12/22/21 *Time: 08:40 Interval history: Patient feels better today, no new complaints. Repeat scope was not done yesterday. Spoke to patient's son via phone. Exam Vital signs and Labs for Last 24 Hours: Temp Pulse Resp BP Pulse Ox 98.1 F 95 H 14 112/65 98 12/22/21 07:39 12/22/21 07:39 12/22/21 07:39 12/22/21 07:39 12/22/21 07:39 Vital Signs - 24 hr 12/21/21 15:06 12/21/21 20:00 12/22/21 04:00 Temperature 99.5 F 99.3 F 98.3 F Pulse Rate [Right Brachial] 82 100 H 93 H Respiratory Rate 18 16 16 Blood Pressure [Left Arm] 113/52 L 117/67 109/57 L 02 Sat by Pulse Oximetry 99 97 98 12/22/21 07:39 Temperature 98.1 F Pulse Rate [Right Brachial] 95 H Respiratory Rate 14 Blood Pressure [Left Arm] 112/65 02 Sat by Pulse Oximetry 98 I & O for Last 24 hours: Intake & Output 12/19/21 12/20/21 12/21/21 12/22/21 23:59 23:59 23:59 23:59 Intake Total 1280 / 1280 840 / 840 460 / 460 120 / 120 Output Total 600 / 600 0 / 0 650 / 650 Balance 680 / 680 840 / 840 -190 / -190 120 / 120 Weight 186 lb 9.6 oz 190 lb 1.6 oz 189 lb 1.6 oz - Constitutional no acute distress - *Routine HEENT Exam Head: Present: normocephalic Eye: Present: EOMI, PERRL ENT: Present: mucous membranes moist - *Routine Neck Exam Present: supple. Absent: lymphadenopathy - *Routine Respiratory Exam Present: CTA bilaterally - *Routine Cardiovascular Exam Present: RRR - *Routine Abdominal Exam Present: soft, normoactive bowel sounds. Absent: tenderness - *Routine Extremities Exam Absent: cyanosis, clubbing, edema - *Routine Skin Exam Present: warm. Absent: rash - *Routine Neurological Exam Present: alert Assessment and Plan (1) GI bleed Status: Acute Category: Medical Code(s): K92.2 - Gastrointestinal hemorrhage, unspecified (2) Anemia Status: Acute Qualifiers: Anemia type: other cause Category: Medical Code(s): D64.9 - Anemia, unspecified (3) Thrombocytopenia Status: Acute Category: Medical Code(s): D69.6 - Thrombocytopenia, unspecified (4) Elevated LFTs Status: Acute Category: Medical Code(s): R79.89 - Other specified abnormal findings of blood chemistry (5) Gastric ulcer Status: Acute Category: Medical Code(s): K25.9 - Gastric ulcer, unspecified as acute or chronic, without hemorrhage or perforation - Assessment and plan all Dx Assessment and Plan for all problems:: Pt has improved. OK for discharge home today, f/u with [facility] surgeons in 4 weeks.
--- NOTE | 2021-12-22 09:25 | PC.NURSE ---
used assembler dc field yoke to educate pt on discahrge. He will follow up in one week and will make his appointment on friday. I also spoke with his son who will be the one picking him up. They voiced understanding of all discharge education and follow up appts. no c/o pain @ this time. edema and discoloration to ble which pt says is normal. pulses are palpable and strong. lungs are cts. bs positive. pt denies abd tenderness.
--- NOTE | 2021-12-22 11:29 | PC.NURSE ---
pt has bene discahrged from the unit. Spoke with his son and explaind discharge education and follow up appts.
--- NOTE | 2021-12-25 14:28 | CARE MANAGER ---
CM called and spoke with patient's son about post discharge status. Patient was discharged on Friday and needed an appointment set up with Dr. Brambila. I called Dr. Brambila's office and set up an appointment for 01/02 @ 1400. Patient's son notified of appointment via voice main r/t unable to reach him again. Patient was able to parts picker prescribed medication and has no other reported needs at this time.
--- NOTE | 2021-12-27 16:20 | HMH.DCSUM ---
General - General Admission date:: 12/17/21 Discharge date: 12/22/21 HPI HPI: Mr Norton is a 56-year-old male who has not been doing well for the last 3 to 4 days. He does not speak Thai and his son is present for interpretation. Patient lives with his son's friend. Apparently yesterday the son tried to call him via phone and there was no answer. Thus he went to the home and found him on the floor. He had vomited blood and was incontinent of black stool. Thus he brought him to the emergency room for evaluation. He states his father has not been himself for the last 3 to 4 days with vague altered mental status. The son and patient do not know if he had had any previous vomiting or diarrhea or how he was eating. With evaluation in the emergency room he was given Octreotide, A liter of IV fluids, vitamin K, and started on Protonix. He was noted to be afebrile and hemodynamically stable. With physical exam he had copious amounts of dark, dry blood on his bilateral lower extremities and in his mouth. He was noted to be alert to place and name but intermittently confused durinn conversation. He moved all extremities. He was noted to take no medicines and no anticoagulants. Testing showed CT of the head with no intracranial process. CT of the pelvis/abdomen showed findings of cirrhosis with portal hypertension.; Colonic wall thickening To consider portal hypertension, Colitis, or malignancy. Laboratory data on admission show white blood cell count of 19,500 which normalized this morning at 9,700. Hemoglobin decreased from 8.6-7.7. Blood chemistries show hyponatremia with a sodium on admission at 129 and is now 131. Potassium is stable at 4.9 and 4.4. BUN was 57 with a creatinine of 1.2 and this morning is 49/0.8. Liver function studies are also elevated on admission with an AST of 163 and ALT of 103 and bilirubin of 3.1. Alkaline phosphatase is normal at 77 and ammonia is 11. Albumin is low at 2.4. Liver function studies have slightly improved this morning. Lactate has improved from 5.5-2.7. Patient was also seen at the urgent treatment center on 12/10/2021 with swelling around his eyes. He was treated for general allergic reaction and given IV Solu-Medrol and prescribed dexamethasone and Benadryl. This a.m. patient denies abdominal pain, nausea, and has had no further vomiting since admission. He has had no further stools. He remains n.p.o.. He has been seen by surgeon Dr. Brambila who plans an EGD later on today. Hospital Course Hospital Course: Patient was seen in consultation by Dr. Brambila and he performed an EGD on 12/18/2021. It showed multiple distal gastric body/antral ulcers. There were a total of 9 small to medium sized ulcers. There was no pulsatile vessel or blood clot noted and no sign of active hemorrhage. There was punctate gastritis throughout the proximal stomach, but no active hemorrhage. A biopsy was taken of the antral ulceration margin. Dr. Brambila recommended the patient continue on a PPI and Carafate. The patient continued with some epigastric pain. He had to be given blood due to a low H&H. His calcium was low as well and his liver tests were all elevated. His octreotide drip was discontinued on 12/20/2021. By 12/21/2021, he was feeling better. His abdominal pain was improving and he had not had any vomiting. His H&H remained stable. It was felt he could be discharged home on 12/22/2021 as a repeat EGD was not done while he was in the hospital. He will follow-up with Dr. Brambila in 4 weeks. He will be discharged on iron, Carafate, and omeprazole. Objective Vital signs: Temp Pulse Resp BP Pulse Ox 98.1 F 95 H 14 112/65 98 12/22/21 07:39 12/22/21 07:39 12/22/21 07:39 12/22/21 07:39 12/22/21 07:39 Narrative: - Constitutional no acute distress <Pili Rick - 12/18/21 09:51> Comments: Appears comfortable <Pili Rick - 12/18/21 09:51> - *Routine HEENT Exam Head: Present: bre
== END 2021-12-22 11:15 | disposition home or self-care (01) | DRG 378 ==
LOC: ER 18:31 → 2ND 20:28
PROVIDERS: Emergency Medicine; Surgery; Admitting Provider Family Medicine; Emergency Provider Student in an Organized Health Care Education/Training Program; Visit Provider Family Medicine
PROC: 0DJ08ZZ Inspection of Upper Intestinal Tract, Via Natural or Artificial Opening Endoscopic (ICD-10-PCS; CPT 43235; principal; 2021-12-18 11:00)
DX: K25.0 Acute gastric ulcer with hemorrhage (principal); K76.6 Portal hypertension; D64.9 Anemia, unspecified; D69.6 Thrombocytopenia, unspecified; Z20.822 Contact with and (suspected) exposure to COVID-19; Z86.73 Personal history of transient ischemic attack (TIA), and cerebral infarction without residual deficits; R74.8 Abnormal levels of other serum enzymes; K29.71 Gastritis, unspecified, with bleeding; K74.60 Unspecified cirrhosis of liver
CPT/HCPCS: 43239; 36415; 70450; 74177; 80053; 82140; 82962; 83605; 85007; 85014; 85018; 85025; 85610; 85730; 86850; 93005; 96365; 96367; 96375; C9803; J0696; J2354; J2405; P9016; Q9967; U0003; U0005

== ENCOUNTER → 2022-01-02 14:25 | Outpatient (CLI) | payer OTHER, SELFPAY ==
[2022-01-02 15:04] LABS: Hematocrit 30.5 % (42.0-52.0); Hemoglobin 9.6 g/dL (14.1-18.0)
== END ==
PROVIDERS: Visit Provider Surgery
DX: K25.0 Acute gastric ulcer with hemorrhage (principal); D64.9 Anemia, unspecified
CPT/HCPCS: 85014; 85018

== ENCOUNTER → 2022-02-09 08:29 | Outpatient (CLI) | payer OTHER, SELFPAY | PROVIDERS: Visit Provider Surgery | DX: Z01.812 Encounter for preprocedural laboratory examination (principal); Z11.52 Encounter for screening for COVID-19; Z13.810 Encounter for screening for upper gastrointestinal disorder | CPT/HCPCS: C9803; U0003; U0005 ==

== ENCOUNTER 2022-02-12 11:46 | Day surgery (SDC) | payer OTHER, SELFPAY ==
[2022-02-12 12:20] VITALS: BP 112/57; PULSE 83; RESP 16; TEMP 36.7; O2SAT 99; BMI 29.9
--- NOTE | 2022-02-12 12:56 | P.PN_ITS ---
[facility] Anesthesia Checklist - Patient Identification Patient Identification: Arm Band - Structural Data Admitted From: Home Planned Operative Procedure/s: egd Consent for Planned Operative Procedure(s) Verified: Yes Verified Documents: Surgical Consent, History and Physical - NPO Status Verified Time NPO: 00:00 - Additional verifications Anesthesia Reactions: No - Airway Assessment C-Spine Mobility Assessed: Yes (mp2) TMJ Mobility Assessed: Yes Dentition: Good Dentition - Neurological Assessment Level of Consciousness: Awake, Alert - Anesthesia Plan Anesthesia Risk discussed: Yes Anesthesia Plan: Verified ASA Class: II Anesthesia Type: MAC [facility] History I have reviewed the patient's past medical history: Yes Medical History: Reports:: Gastroesophageal Reflux Disease(GERD) Denies:: Cancer, Chronic Obstructive Pulmonary Disease (COPD), Coronary Artery Disease, Cerebrovascular Accident, Diabetes Mellitus Type 1, Diabetes Mellitus Type 2, Internal Pacemaker, MRSA, Seizures *Have you ever received a pneumonia vaccine?: No *Have you received a flu vaccine this season?: Yes Anesthesia experience/problems:: nac Other Surgeries: Yes: EGD, Other. No: Pacemaker Amputation: No Fractures: No - *Social History Last grade of school completed: 5th or 6th Smoking Status: Never smoker Alcohol Intake: never Substance Use Type: denies use *Occupational Status:: unemployed Housing: house Household Members: family *Travel in the last 8 weeks: None Family Hx:: Unable to obtain
[2022-02-12 13:19] VITALS: O2SAT 99
--- NOTE | 2022-02-12 13:31 | [facility].SCOPE ---
- Procedure: Date: 02/12/22 Patient Date of :: 1965 Procedure Performed:: Esophagogastroduodenoscopy with biopsy Indications:: Gastric ulcerations with recent hemorrhage Performing Provider:: Jimmy Brambila MD Referring Provider:: . Sedation:: Monitored anesthesia care Procedure:: After informed consent was obtained the patient was taken to the endoscopy suite. Sedation ensued after the patient was transferred to the left lateral decubitus position. Pulse, blood pressure, and oxygen saturation were monitored throughout the procedure. The endoscope was advanced beyond the duodenal bulb. Retroflexion within the gastric lumen was accomplished. The gastroscope was carefully removed and the patient was transferred to recovery in stable condition. Please see findings and specimens below for detail. Findings:: Proximal gastritis Distal gastric ulcerations healed Specimens:: Mid gastric body biopsy Antral biopsy Recommendations:: Follow-up pathology Continue proton pump inhibition Complications:: No immediate Estimated blood obtained (mL): 1
[2022-02-12 13:35] VITALS: BP 101/63; PULSE 88; RESP 16; TEMP 36.6; O2SAT 96
[2022-02-12 13:45] VITALS: BP 116/66; PULSE 71; RESP 16; TEMP 36.6; O2SAT 98
[2022-02-12 13:55] VITALS: BP 126/74; PULSE 76; RESP 18; TEMP 36.6; O2SAT 100
[2022-02-12 14:10] VITALS: BP 125/72; PULSE 72; RESP 18; TEMP 36.6; O2SAT 100
== END 2022-02-12 14:10 | disposition home or self-care (01) ==
LOC: OUTP 11:48
PROVIDERS: Visit Provider Surgery
PROC: 0DJ08ZZ Inspection of Upper Intestinal Tract, Via Natural or Artificial Opening Endoscopic (ICD-10-PCS; CPT 43235; principal; 2022-02-12 12:30)
DX: K29.60 Other gastritis without bleeding (principal); Z87.11 Personal history of peptic ulcer disease; Z79.899 Other long term (current) drug therapy
CPT/HCPCS: 43239